=== PATIENT | female | born 1965 | race Caucasian/White ===

== ENCOUNTER → 2016-06-12 | Outpatient (CLI) | payer MEDICARE, OTHER ==
[~2016-06-12] MED LIST: ADVAIR 250-501 EACH; ALBUTEROL MININEB NEB; BACLOFEN10 MG PO; BUSPAR PO; CELEXA20 MG PO; CLEOCIN HCL150 MG PO; CLEOCIN HCL300 M1 PO; CLINDAMYCIN HC300 MG PO; CLONAZEPAM0.5 MG PO; DAKIN'S MODIF1000 ML EXT; DEPAKOTE PO; DIVALPROEX SOD500 M1 PO; EFFEXOR PO; FLEXERIL PO; FLONASE 0.05% N16 G1; FLUOXETINE HCL20 M1 PO; HCTZ PO; HYDROCHLOROTHIA25 MG PO; KLONOPIN1 MG PO; KRATOM PO; LOTEMAX5 ML OP; MEDROL PO; METOPROLOL SUCC25 MG PO; NEURONTIN600 MG PO; NICOTINE TRANSD21 MG EXT; NORVASC PO; OXYCODON HCL-1 UDTAB PO; OXYCODON HCL-AP1 TA2 PO; PERCOCET PO; PRILOSEC20 M1 PO; PROTONIX PO; PROZAC PO; PROZAC40 MG DOB; REMERON15 MG PO; SERTRALINE HCL100 MG PO; SIMVASTATIN20 MG PO; TIZANIDINE HCL4 M1 PO; TOPAMAX50 MG DOB; TORADOL10 MG PO; TYLENOL ARTHRITIS PO; VICODIN 5/500 T1 TAB PO; WAL-PROFEN200 M1 PO; ZOLOFT PO; ZYVOX600 MG PO
--- NOTE | ~2016-06-12 | MY11 ---
[facility] A Service of [facility] RADIOLOGY TEXT RESULTS PATIENT: IWONA GONZALEZ LOCATION: [facility] : 61 UNIT #: [id number] AGE: [address]: DAISY ELMORE SEX: F ORDER DR: [id number] [facility] [address] [address] [id number] O MR#: [id number] Acc #: [id number] NAME: IWONA GONZALEZ : 1965 SEX: F STUDY DATE/TIME: 06/12/2016 11:52 UNIT: [facility] ROOM: STUDY DESCRIPTION: MY Mammogram Screening Dig Thomas Attending Physician: Katelynn Montes Referring Physician: Rayna Guzmán M.D. Ordering Physician: Katelynn Montes Primary Care Physician: Rayna Guzmán M.D. MEDICAL IMAGING REPORT This report is preliminary unless electronic signature is present EXAM Digital screening mammogram 06/12/2016 HISTORY 51-year-old woman previous reduction mammoplasties, 2009. No risk elevation. Annual screen. COMPARISON Mammograms 07/31/2011 with a followup diagnostic mammogram 08/17/2011 FINDINGS Digital imaging of each breast was completed utilizing screening protocol. Review includes FDA-approved CAD device. Breast parenchyma is predominantly fatty replaced with parenchymal dominance again projecting in the upper outer quadrant of the left breast. Subareolar duct prominence in each breast appears stable. I see no suspicious mass characteristics. There are no interval occurring or suspicious microcalcifications and no architectural deformity. IMPRESSION Benign mammogram. Parenchymal asymmetry dominant in the left breast again noted. Annual screening recommended. Patients over the age of 40 are entered into a reminder system with target due date for the next mammogram. A result letter will also be sent to the patient. BIRADS: 2, benign findings. Dictated by... Gabriel New M.D. [facility] A Service of [facility] RADIOLOGY TEXT RESULTS PATIENT: IWONA GONZALEZ LOCATION: [facility] : 61 UNIT #: [id number] AGE: [address]: DAISY ELMORE SEX: F ORDER DR: THIS IS AN ELECTRONICALLY VERIFIED REPORT Gabriel New M.D. at 06/13/2016 8:06 AM PAYAL/toyin TD: 06/12/2016 17:21 JOB #: [id number] MEDICAL IMAGING REPORT Page 1 of 1 COPY
--- NOTE | ~2016-06-12 | BD1 ---
[facility] A Service of [facility] RADIOLOGY TEXT RESULTS PATIENT: IWONA GONZALEZ LOCATION: [facility] : 61 UNIT #: [id number] AGE: [address]: DAISY ELMORE SEX: F ORDER DR: [id number] [facility] [address] [place], [place] [address] [id number] O MR#: [id number] Acc #: [id number] NAME: IWONA GONZALEZ : 1965 SEX: F STUDY DATE/TIME: 06/12/2016 12:07 UNIT: [facility] ROOM: STUDY DESCRIPTION: BD Dexa Bone Dens 1+ Site Attending Physician: Katelynn Montes Referring Physician: Rayna Guzmán M.D. Ordering Physician: Katelynn Montes Primary Care Physician: Rayna Guzmán M.D. MEDICAL IMAGING REPORT This report is preliminary unless electronic signature is present EXAM Bone density spine hip 06/12/2016. HISTORY Postmenopausal. Smoker. 30 years. Current smoker. Postmenopausal. Bone density scanning performed upper 4 lumbar vertebral segments and proximal left femur in this 165-pound 51-year-old female. Patient indicates that she is post menopausal. FINDINGS Bone mineral density in the upper four lumbar vertebral segments is 0.965 g per square centimeter for a T-score 0.7 standard deviations below mean for a reference population normal young individuals and a Z-score 0.2 standard deviations above the mean for age-matched population. Left proximal femur: Total bone density 1.007 g per square centimeter for a T-score 0.5 standard deviations above mean for reference population normal young individuals and a Z-score 1.1 standard deviation above the mean for age-match population. In the left femoral neck the bone mineral density is 0.724 g per square centimeter for a T-score 1.1 standard deviations below mean for reference population normal young individuals and a Z-score 0.2 standard deviations below the mean for age-match population. IMPRESSION Osteopenia in the left femoral neck. The patient is felt to be at increased risk for fracture. Treatment options may be considered. Continued surveillance is recommended. Dictated by... Nathan Arreola M.D. [facility] A Service of [facility] RADIOLOGY TEXT RESULTS PATIENT: IWONA GONZALEZ LOCATION: [facility] : 61 UNIT #: [id number] AGE: [address]: DAISY ELMORE SEX: F ORDER DR: THIS IS AN ELECTRONICALLY VERIFIED REPORT Nathan Arreola M.D. at 06/13/2016 2:18 PM Lexi TD: 06/13/2016 06:30 JOB #: [id number] MEDICAL IMAGING REPORT Page 1 of 1 COPY
== END | disposition home or self-care (01) ==
LOC: CWCC 11:26
DX: Z12.31 Encounter for screening mammogram for malignant neoplasm of breast (principal); Z78.0 Asymptomatic menopausal state; N64.89 Other specified disorders of breast; M85.88 Other specified disorders of bone density and structure, other site; Z98.890 Other specified postprocedural states
CPT/HCPCS: 77080; G0202

== ENCOUNTER → 2016-07-11 | Day surgery (SDC) | payer MEDICARE, OTHER ==
--- NOTE | ~2016-07-11 | OR ---
Unit #: [id number] #: [id number] Patient: IWONA GONZALEZ [id number] [address] [place], [place] [address] [id number] O MR#: [id number] NAME: IWONA GONZALEZ ROOM: Date of Procedure: 07/11/2016 Admission Date: 07/11/2016 Surgeon: Jeffrey Betancourt M.D. : 1965 Attending Physician: Jeffrey Betancourt M.D. Referring Physician: Jeffrey Betancourt M.D. Primary Care Physician: Rayna Guzmán M.D. OPERATIVE REPORT PROCEDURE PERFORMED Colonoscopy to cecum. INDICATIONS FOR PROCEDURE Average risk for colorectal cancer. MEDICATIONS Monitored anesthesia. POSTOPERATIVE FINDINGS 1. Normal exam to cecum. 2. Good prep. PLAN Repeat colonoscopy in 10 years. DESCRIPTION OF PROCEDURE The patient was explained of the procedure, risks, and benefits along with risks and benefits of anesthesia. She was brought to the endoscopy room. Propofol anesthesia was given. Rectal exam was done, which was normal. Colonoscope was lubricated, passed up the rectum, advanced under direct vision all the way to the cecum. Cecum was identified by ileocecal valve and appendiceal orifice. I then started to pull the scope out carefully looking. No polyps, masses, or colitis was seen. Mucosa was normal and healthy. I retroflexed in the rectum, small hemorrhoids noted. Gently, the scope was pulled out. She tolerated it well. Dictated by... Lola Campbell/renée TD: 07/11/2016 22:37 JOB #: [id number] Unit #: [id number] #: [id number] Patient: IWONA GONZALEZ OPERATIVE REPORT Page 1 of 1 X Jeffrey Betancourt MD X PROCEDURE OPERATIVE NOTE
== END | disposition home or self-care (01) ==
LOC: COPS 08:55
DX: Z12.11 Encounter for screening for malignant neoplasm of colon (principal); K64.9 Unspecified hemorrhoids; J44.9 Chronic obstructive pulmonary disease, unspecified; K21.9 Gastro-esophageal reflux disease without esophagitis; I10 Essential (primary) hypertension; F17.210 Nicotine dependence, cigarettes, uncomplicated; Z87.01 Personal history of pneumonia (recurrent); Z88.0 Allergy status to penicillin; Z88.1 Allergy status to other antibiotic agents; Z79.899 Other long term (current) drug therapy; Z98.51 Tubal ligation status; Z98.1 Arthrodesis status
CPT/HCPCS: J2250

== ENCOUNTER → 2016-07-31 | Outpatient (CLI) | payer MEDICARE, OTHER ==
--- NOTE | ~2016-07-31 | CR58 ---
[facility] A Service of [facility] & [facility] RADIOLOGY TEXT RESULTS PATIENT: IWONA GONZALEZ LOCATION: [facility] : 61 UNIT #: [id number] AGE: [address]: DAISY ELMORE SEX: F ORDER DR: [id number] [facility] [address] [place], [place] [address] [id number] O MR#: [id number] Acc #: [id number] NAME: IWONA GONZALEZ : 1965 SEX: F STUDY DATE/TIME: 07/31/2016 13:51 UNIT: [facility] ROOM: STUDY DESCRIPTION: CR Cervical Spine 2 or 3 Views Attending Physician: Katelynn Montes Referring Physician: Katelynn Montes Ordering Physician: Katelynn Montes Primary Care Physician: Rayna Guzmán M.D. MEDICAL IMAGING REPORT This report is preliminary unless electronic signature is present EXAM Cervical spine 3 view series HISTORY Pain for 7 years, previous surgery FINDINGS AP, lateral and odontoid views of the cervical spine were obtained. There has been prior fusion anteriorly at C5-6. There is anterior osteophyte formation at C6-7. There is no significant posterior spurring and the disc spaces are of normal height. IMPRESSION Postoperative changes C5-6 with degenerative change at C6-7, otherwise normal. Dictated by... Ravi Collazo M.D. THIS IS AN ELECTRONICALLY VERIFIED REPORT Ravi Collazo M.D. at 08/01/2016 11:56 AM MICHELLE/nino TD: 08/01/2016 08:36 JOB #: [id number] MEDICAL IMAGING REPORT Page 1 of 1 COPY
--- NOTE | ~2016-07-31 | CR181 ---
[facility] A Service of [facility] RADIOLOGY TEXT RESULTS PATIENT: IWONA GONZALEZ LOCATION: [facility] : 61 UNIT #: [id number] AGE: [address]: DAISY ELMORE SEX: F ORDER DR: [id number] [facility] [address] [place], [place] [address] [id number] O MR#: [id number] Acc #: [id number] NAME: IWONA GONZALEZ : 1965 SEX: F STUDY DATE/TIME: 07/31/2016 13:51 UNIT: [facility] ROOM: STUDY DESCRIPTION: CR Lumbar Spine 2 or 3 Views Attending Physician: Katelynn Montes Referring Physician: Katelynn Montes Ordering Physician: Katelynn Montes Primary Care Physician: Rayna Guzmán M.D. MEDICAL IMAGING REPORT This report is preliminary unless electronic signature is present EXAM Lumbar spine, 3 view series INDICATIONS Low back pain for years. FINDINGS AP and lateral views of the lumbar spine were obtained. There is mild disc space narrowing at L5-S1. The alignment is normal. The other disc spaces are normal in height. IMPRESSION Mild L5-S1 disc space narrowing. No fracture or subluxation. Dictated by... Ravi Collazo M.D. THIS IS AN ELECTRONICALLY VERIFIED REPORT Ravi Collazo M.D. at 08/01/2016 11:56 AM MICHELLE/jennifer TD: 08/01/2016 08:27 JOB #: [id number] MEDICAL IMAGING REPORT Page 1 of 1 COPY
== END | disposition home or self-care (01) ==
LOC: CRAD 13:01
DX: M54.2 Cervicalgia (principal); M54.6 Pain in thoracic spine; M51.37 Other intervertebral disc degeneration, lumbosacral region; M47.892 Other spondylosis, cervical region; Z98.1 Arthrodesis status
CPT/HCPCS: 72040; 72100

== ENCOUNTER → 2016-11-01 | Outpatient (CLI) | payer MEDICARE, OTHER ==
--- NOTE | ~2016-11-01 | CR63 ---
[facility] A Service of [facility] RADIOLOGY TEXT RESULTS PATIENT: IWONA GONZALEZ LOCATION: [facility] : 61 UNIT #: [id number] AGE: [address]: DIASY ELMORE SEX: F ORDER DR: [id number] [facility] [address] [place], [place] [address] [id number] O MR#: [id number] Acc #: [id number] NAME: IWONA GONZALEZ : 1965 SEX: F STUDY DATE/TIME: 11/01/2016 14:32 UNIT: [facility] ROOM: STUDY DESCRIPTION: CR Chest 2 View Attending Physician: Katelynn Montes Referring Physician: Katelynn Montes Ordering Physician: Katelynn Montes Primary Care Physician: Rayna Guzmán M.D. MEDICAL IMAGING REPORT This report is preliminary unless electronic signature is present EXAM Chest, PA and lateral, 11/01/2016. HISTORY Chest pain left side with palpable knot under left breast beginning today. Benign essential hypertension, COPD exacerbation. Smoking history for 30 years, cough and chest congestion. FINDINGS The heart is normal in size. The lungs are hyperinflated with emphysematous and fibrotic changes characteristic of COPD. Scattered calcified granulomas are seen. No airspace consolidation is seen. There are no pleural effusions. IMPRESSION COPD and scattered calcified granulomas. No active pulmonary disease. Dictated by... Tadeo Chaves M.D. THIS IS AN ELECTRONICALLY VERIFIED REPORT Tadeo Chaves M.D. at 11/02/2016 7:19 AM CIRA/lynne TD: 11/01/2016 23:43 JOB #: [id number] MEDICAL IMAGING REPORT Page 1 of 1 COPY
== END | disposition home or self-care (01) ==
LOC: CRAD 14:16
DX: R07.9 Chest pain, unspecified (principal); J44.9 Chronic obstructive pulmonary disease, unspecified; J84.10 Pulmonary fibrosis, unspecified
CPT/HCPCS: 71020